=== PATIENT | female | born 1975 | race Caucasian/White ===

== ENCOUNTER 2020-02-05 11:20 | Emergency (ER) | payer OTHER ==
[~2020-02-05] VITALS: Ht 154.9 cm; Wt 63.5 kg
[2020-02-05 11:27] VITALS: Ht 154.9 cm; Wt 63.5 kg
[2020-02-05 14:18] VITALS: BP 142/89
== END 2020-02-05 14:18 | disposition home or self-care (01) ==
LOC: ED 11:20
DX: S61.213A Laceration without foreign body of left middle finger without damage to nail, initial encounter (principal); S61.215A Laceration without foreign body of left ring finger without damage to nail, initial encounter; W22.8XXA Striking against or struck by other objects, initial encounter; Y93.89 Activity, other specified; Y92.89 Other specified places as the place of occurrence of the external cause; Y99.8 Other external cause status
CPT/HCPCS: 90715; J0690; J2001; Q0092